=== PATIENT | male | born 1950 | race Caucasian/White ===

== ENCOUNTER 2022-06-26 11:13 | Inpatient (IN) | payer OTHER ==
[~2022-06-26] VITALS: Ht 165.1 cm; Wt 93.9 kg
[2022-06-26 11:15] VITALS: BP_SYST 128
[2022-06-26] MEDS ORDERED: dilTIAZem HCL IVP 5 MG/ML VIAL IVP ONE ×2 (11:30→11:45)
[2022-06-26] MEDS ORDERED: DILTIAZEM HCL 60 MG TABLET PO ONE (11:30)
[2022-06-26 11:40] LABS: BASOPHILS # (AUTO) 0.1 K/uL (0.0-0.2); BASOPHILS % (AUTO) 0.8 % (0.0-2.0); EOSINOPHILS # (AUTO) 0.2 K/uL (0.0-0.4); EOSINOPHILS % (AUTO) 1.8 % (0.0-4.0); HEMATOCRIT 40.4 % (36-54); HEMOGLOBIN 13.5 g/dL (14.0-18.0); LYMPHOCYTES # (AUTO) 1.6 K/uL (1.0-5.5); LYMPHOCYTES % (AUTO) 17.9 % (20.5-51.5); MEAN CORPUSCULAR HEMOGLOBIN 30 pg (27-31); MEAN CORPUSCULAR HGB CONC 33 % (32-36); MEAN CORPUSCULAR VOLUME 89 fL (79.0-98.0); MONOCYTES # (AUTO) 0.9 K/uL (0.0-1.0); MONOCYTES % (AUTO) 9.6 % (1.7-9.3); NEUTROPHILS # (AUTO) 6.4 K/uL (1.8-7.7); NEUTROPHILS % (AUTO) 69.9 % (40.0-70.0); PLATELET COUNT (AUTO) 241 K/uL (130-430); RED BLOOD CELL COUNT(AUTO) 4.53 MIL/uL (4.2-6.2); RED CELL DISTRIBUTION WIDTH 14.3 % (9.0-15.0); WHITE BLOOD COUNT (AUTO) 9.1 K/uL (4.8-10.8)
[2022-06-26 11:51] LABS: ANION GAP 10 (5-15); CALCIUM 8.9 mg/dL (8.4-11.0); CHLORIDE 106 mmol/L (98-107); CREATININE 1.14 mg/dL (0.55-1.30); GLUCOSE 167 mg/dL (70-99); UREA NITROGEN, BLOOD 26 mg/dL (8-21)
[2022-06-26] MEDS ORDERED: ROSU40TA23 PO (11:53)
[2022-06-26] MEDS ORDERED: FINA5TAB11 PO (11:53)
[2022-06-26] MEDS ORDERED: EMPA25TA PO (11:53)
[2022-06-26] MEDS ORDERED: METO-542 PO (11:53)
[2022-06-26] MEDS ORDERED: SITA1TBM7 PO (11:53)
[2022-06-26] MEDS ORDERED: LOSA25TA18 PO (11:53)
[2022-06-26] MEDS ORDERED: TAMS0.4C96 PO (11:53)
[2022-06-26] MEDS ORDERED: APIX5TAB PO (11:53)
[2022-06-26] MEDS ORDERED: INSU300I3 SUBCUT (11:53)
[2022-06-26 11:56] LABS: INR 1.2 (0.80-1.20); PROTHROMBIN TIME 12.3 SECS (9.5-12.5)
[2022-06-26 12:18] LABS: ALANINE AMINOTRANSFERASE 24 U/L (12-78); ALBUMIN 2.9 g/dL (3.4-4.8); ASPARTATE AMINOTRANSFERASE 14 U/L (10-37); TOTAL BILIRUBIN 0.9 mg/dL (0.0-1.0)
[2022-06-26] MEDS ORDERED: ACETAMINOPHEN 325 MG TABLET PO PRN ×2 (12:45→13:00)
[2022-06-26] MEDS ORDERED: FUROSEMIDE 20 MG/2 ML VIAL IVP ONE (12:45)
[2022-06-26] MEDS ORDERED: NACL 0.9% 1,000 ML IV ONE (13:15)
[2022-06-26] MEDS ORDERED: METOPROLOL TARTRATE 25 MG TABLET PO SCH (14:00)
[2022-06-26] MEDS ORDERED: DEXTROSE 50% JECT 50 ML DISP.SYRIN IVP PRN ×2 (14:15)
[2022-06-26] MEDS ORDERED: INSULIN LISPRO SLIDING SCALE 100 UNITS/ML, 3 ML VIAL (humaLOG) SUBCUT PRN (14:15)
[2022-06-26] MEDS ORDERED: D5W 1,000 ML IV PRN (14:15)
[2022-06-26] MEDS ORDERED: GLUCOSE (DEXTROSE) ORAL GEL -Adults PO PRN (14:15)
[2022-06-26] MEDS: DILTIAZEM HCL 60 MG TABLET PO SCH (18:04)
[2022-06-26] MEDS ORDERED: ZOLPIDEM TARTRATE 5 MG TABLET PO PRN (20:00)
[2022-06-26] MEDS: INSULIN GLARGINE 100 UNITS/ML, 10 ML VIAL SUBCUT SCH (22:12)
[2022-06-26] MEDS: FUROSEMIDE 20 MG/2 ML VIAL IVP SCH (22:14)
[2022-06-27 05:29] LABS: BASOPHILS # (AUTO) 0.1 K/uL (0.0-0.2); BASOPHILS % (AUTO) 0.7 % (0.0-2.0); EOSINOPHILS # (AUTO) 0.3 K/uL (0.0-0.4); EOSINOPHILS % (AUTO) 3.1 % (0.0-4.0); HEMATOCRIT 40.7 % (36-54); HEMOGLOBIN 13.3 g/dL (14.0-18.0); LYMPHOCYTES # (AUTO) 1.7 K/uL (1.0-5.5); LYMPHOCYTES % (AUTO) 17.7 % (20.5-51.5); MEAN CORPUSCULAR HEMOGLOBIN 30 pg (27-31); MEAN CORPUSCULAR HGB CONC 33 % (32-36); MEAN CORPUSCULAR VOLUME 90 fL (79.0-98.0); MONOCYTES # (AUTO) 0.9 K/uL (0.0-1.0); MONOCYTES % (AUTO) 9.2 % (1.7-9.3); NEUTROPHILS # (AUTO) 6.5 K/uL (1.8-7.7); NEUTROPHILS % (AUTO) 69.3 % (40.0-70.0); PLATELET COUNT (AUTO) 223 K/uL (130-430); RED BLOOD CELL COUNT(AUTO) 4.51 MIL/uL (4.2-6.2); RED CELL DISTRIBUTION WIDTH 14.8 % (9.0-15.0); WHITE BLOOD COUNT (AUTO) 9.4 K/uL (4.8-10.8)
[2022-06-27 05:48] LABS: ALANINE AMINOTRANSFERASE 25 U/L (12-78); ALBUMIN 2.7 g/dL (3.4-4.8); ANION GAP 11 (5-15); ASPARTATE AMINOTRANSFERASE 13 U/L (10-37); CALCIUM 8.5 mg/dL (8.4-11.0); CHLORIDE 107 mmol/L (98-107); CREATININE 1.02 mg/dL (0.55-1.30); GLUCOSE 112 mg/dL (70-99); PHOSPHORUS 4.3 mg/dL (2.7-4.5); TOTAL BILIRUBIN 0.9 mg/dL (0.0-1.0); UREA NITROGEN, BLOOD 25 mg/dL (8-21)
[2022-06-27] MEDS: DILTIAZEM HCL 60 MG TABLET PO SCH ×2 (06:00→11:33)
[2022-06-27] MEDS: APIXABAN 2.5 MG TABLET PO SCH ×3 (07:17→21:03)
[2022-06-27 08:13] VITALS: BP_SYST 99
[2022-06-27 08:23] VITALS: BP_SYST 99
[2022-06-27] MEDS ORDERED: LOSARTAN POTASSIUM 25 MG TABLET PO SCH (09:00)
[2022-06-27] MEDS ORDERED: ASPIRIN 81 MG TAB.CHEW PO SCH (09:00)
[2022-06-27] MEDS: FUROSEMIDE 20 MG/2 ML VIAL IVP SCH ×2 (11:28→21:02)
[2022-06-27] MEDS: TAMSULOSIN HCL 0.4 MG CAP PO SCH (11:29)
[2022-06-27] MEDS: FINASTERIDE 5 MG TABLET (PROSCAR) PO SCH (11:29)
[2022-06-27 11:33] VITALS: BP_SYST 107
[2022-06-27] MEDS ORDERED: dilTIAZem HCL IVP 5 MG/ML VIAL IVP PRN (11:45)
[2022-06-27] MEDS ORDERED: DIGOXIN 0.5 MG/2 ML AMP IVP ONE (12:00)
[2022-06-27] MEDS: DILTIAZEM HCL 30 MG TABLET PO SCH ×2 (12:00→17:35)
[2022-06-27] MEDS ORDERED: CARVEDILOL 6.25 MG TABLET (COREG) PO ONE (12:00)
[2022-06-27 12:16] LABS: THYROID STIMULATING HORMONE 1.55 uIu/mL (0.34-4.82)
[2022-06-27] MEDS ORDERED: METOPROLOL SUCCINATE 25 MG TAB.SR.24H (TOPROL XL) PO ONE (12:30)
[2022-06-27 12:33] LABS: FREE T4 (FREE THYROXINE) 1.1 ng/dl (0.8-1.5)
[2022-06-27] MEDS ORDERED: SPIRONOLACTONE 25 MG TABLET (ALDACTONE) PO ONE (13:30)
[2022-06-27 13:34] VITALS: BP_SYST 117
[2022-06-27 16:35] VITALS: BP_SYST 101
[2022-06-27] MEDS ORDERED: CARVEDILOL 6.25 MG TABLET (COREG) PO SCH (21:00)
[2022-06-27] MEDS: ATORVASTATIN 20 MG TABLET PO SCH (21:02)
[2022-06-27] MEDS: INSULIN GLARGINE 100 UNITS/ML, 10 ML VIAL SUBCUT SCH (21:07)
[2022-06-27 22:02] VITALS: BP_SYST 105
[2022-06-28] VITALS: BP_SYST 100
[2022-06-28 04:10] VITALS: BP_SYST 123
[2022-06-28 05:37] LABS: BASOPHILS # (AUTO) 0.1 K/uL (0.0-0.2); BASOPHILS % (AUTO) 0.9 % (0.0-2.0); EOSINOPHILS # (AUTO) 0.3 K/uL (0.0-0.4); EOSINOPHILS % (AUTO) 3.6 % (0.0-4.0); HEMATOCRIT 40.1 % (36-54); HEMOGLOBIN 13.3 g/dL (14.0-18.0); LYMPHOCYTES # (AUTO) 1.5 K/uL (1.0-5.5); LYMPHOCYTES % (AUTO) 18.7 % (20.5-51.5); MEAN CORPUSCULAR HEMOGLOBIN 30 pg (27-31); MEAN CORPUSCULAR HGB CONC 33 % (32-36); MEAN CORPUSCULAR VOLUME 89 fL (79.0-98.0); MONOCYTES # (AUTO) 0.8 K/uL (0.0-1.0); MONOCYTES % (AUTO) 10.1 % (1.7-9.3); NEUTROPHILS # (AUTO) 5.3 K/uL (1.8-7.7); NEUTROPHILS % (AUTO) 66.7 % (40.0-70.0); PLATELET COUNT (AUTO) 232 K/uL (130-430); RED BLOOD CELL COUNT(AUTO) 4.51 MIL/uL (4.2-6.2); RED CELL DISTRIBUTION WIDTH 14.2 % (9.0-15.0); WHITE BLOOD COUNT (AUTO) 7.9 K/uL (4.8-10.8)
[2022-06-28 06:02] LABS: ALANINE AMINOTRANSFERASE 25 U/L (12-78); ALBUMIN 2.7 g/dL (3.4-4.8); ANION GAP 11 (5-15); ASPARTATE AMINOTRANSFERASE 17 U/L (10-37); CALCIUM 8.8 mg/dL (8.4-11.0); CHLORIDE 107 mmol/L (98-107); GLUCOSE 155 mg/dL (70-99); PHOSPHORUS 3.8 mg/dL (2.7-4.5); TOTAL BILIRUBIN 0.9 mg/dL (0.0-1.0); UREA NITROGEN, BLOOD 22 mg/dL (8-21)
[2022-06-28] MEDS: DILTIAZEM HCL 30 MG TABLET PO SCH ×5 (06:29→23:59)
[2022-06-28 08:20] VITALS: BP_SYST 130
[2022-06-28] MEDS: SACUBITRIL/VALSARTAN 24 MG-26 MG 1 TABLET PO SCH ×2 (09:00→21:00)
[2022-06-28] MEDS: FUROSEMIDE 20 MG/2 ML VIAL IVP SCH ×2 (09:00→21:00)
[2022-06-28] MEDS: TAMSULOSIN HCL 0.4 MG CAP PO SCH (09:01)
[2022-06-28] MEDS: SPIRONOLACTONE 25 MG TABLET (ALDACTONE) PO SCH (09:01)
[2022-06-28] MEDS: DIGOXIN 0.125 MG TABLET PO SCH (09:01)
[2022-06-28] MEDS: METOPROLOL SUCCINATE 25 MG TAB.SR.24H (TOPROL XL) PO SCH (09:02)
[2022-06-28] MEDS: FINASTERIDE 5 MG TABLET (PROSCAR) PO SCH (09:03)
[2022-06-28] MEDS: APIXABAN 2.5 MG TABLET PO SCH ×2 (09:04→21:17)
[2022-06-28 16:00] VITALS: BP_SYST 107
[2022-06-28 20:07] VITALS: BP_SYST 100
[2022-06-28] MEDS: ATORVASTATIN 20 MG TABLET PO SCH (21:09)
[2022-06-28] MEDS: INSULIN GLARGINE 100 UNITS/ML, 10 ML VIAL SUBCUT SCH (21:17)
[2022-06-29 00:18] VITALS: BP_SYST 102
[2022-06-29 04:39] LABS: BASOPHILS # (AUTO) 0.1 K/uL (0.0-0.2); BASOPHILS % (AUTO) 0.8 % (0.0-2.0); EOSINOPHILS # (AUTO) 0.3 K/uL (0.0-0.4); HEMATOCRIT 42.5 % (36-54); HEMOGLOBIN 14.1 g/dL (14.0-18.0); LYMPHOCYTES % (AUTO) 24.1 % (20.5-51.5); MEAN CORPUSCULAR HEMOGLOBIN 30 pg (27-31); MEAN CORPUSCULAR HGB CONC 33 % (32-36); MEAN CORPUSCULAR VOLUME 89 fL (79.0-98.0); MONOCYTES # (AUTO) 0.9 K/uL (0.0-1.0); MONOCYTES % (AUTO) 11.6 % (1.7-9.3); NEUTROPHILS # (AUTO) 4.8 K/uL (1.8-7.7); NEUTROPHILS % (AUTO) 59.5 % (40.0-70.0); PLATELET COUNT (AUTO) 260 K/uL (130-430); RED BLOOD CELL COUNT(AUTO) 4.77 MIL/uL (4.2-6.2); RED CELL DISTRIBUTION WIDTH 14.5 % (9.0-15.0); WHITE BLOOD COUNT (AUTO) 8.1 K/uL (4.8-10.8)
[2022-06-29 04:56] LABS: ANION GAP 8 (5-15); CALCIUM 9.2 mg/dL (8.4-11.0); CHLORIDE 106 mmol/L (98-107); CREATININE 1.05 mg/dL (0.55-1.30); GLUCOSE 180 mg/dL (70-99); UREA NITROGEN, BLOOD 23 mg/dL (8-21)
[2022-06-29] MEDS: DILTIAZEM HCL 30 MG TABLET PO SCH ×2 (06:47→12:25)
[2022-06-29 07:45] VITALS: BP_SYST 102
[2022-06-29] MEDS: FUROSEMIDE 20 MG/2 ML VIAL IVP SCH (09:23)
[2022-06-29] MEDS: FINASTERIDE 5 MG TABLET (PROSCAR) PO SCH (09:33)
[2022-06-29] MEDS: DIGOXIN 0.125 MG TABLET PO SCH (09:33)
[2022-06-29] MEDS: TAMSULOSIN HCL 0.4 MG CAP PO SCH (09:33)
[2022-06-29] MEDS: SPIRONOLACTONE 25 MG TABLET (ALDACTONE) PO SCH (09:33)
[2022-06-29] MEDS: SACUBITRIL/VALSARTAN 24 MG-26 MG 1 TABLET PO SCH (09:34)
[2022-06-29] MEDS: APIXABAN 2.5 MG TABLET PO SCH (09:35)
[2022-06-29] MEDS: METOPROLOL SUCCINATE 25 MG TAB.SR.24H (TOPROL XL) PO SCH (10:00)
[2022-06-29 11:14] VITALS: BP_SYST 105
[2022-06-29] MEDS ORDERED: SPIR25TA PO (12:36)
[2022-06-29] MEDS ORDERED: DIGO125T PO (12:36)
[2022-06-29] MEDS ORDERED: CAR30 PO (12:36)
[2022-06-29] MEDS ORDERED: SACU1TAB PO (12:36)
[2022-06-29] MEDS ORDERED: METO-540 PO (12:36)
[2022-06-29] MEDS ORDERED: INSU100V9 SUBCUT (12:36)
[2022-06-29 15:29] VITALS: BP_SYST 96
[2022-06-29 16:27] VITALS: BP_SYST 127
== END 2022-06-29 17:05 | disposition home or self-care (01) | DRG 291 ==
LOC: SED 11:13 → STU 12:35
PROVIDERS: ADMIT Student in an Organized Health Care Education/Training Program; ATTEND Specialist
DX: I11.0 Hypertensive heart disease with heart failure (principal); I50.43 Acute on chronic combined systolic (congestive) and diastolic (congestive) heart failure; I47.1 Supraventricular tachycardia; I48.20 Chronic atrial fibrillation, unspecified; I42.0 Dilated cardiomyopathy; E78.5 Hyperlipidemia, unspecified; E11.9 Type 2 diabetes mellitus without complications; I50.9 Heart failure, unspecified; I34.0 Nonrheumatic mitral (valve) insufficiency; I27.21 Secondary pulmonary arterial hypertension; Z20.822 Contact with and (suspected) exposure to COVID-19; Z79.4 Long term (current) use of insulin; Z88.1 Allergy status to other antibiotic agents; Z79.899 Other long term (current) drug therapy; Z79.01 Long term (current) use of anticoagulants; Z86.73 Personal history of transient ischemic attack (TIA), and cerebral infarction without residual deficits
CPT/HCPCS: 36415; 71045; 80048; 80053; 82962; 83735; 83880; 84100; 84439; 84443; 84484; 85025; 85379; 85610-TC; 85730-TC; 93005; 93306; 93970; 96361; 96374; 97112-GP; 97116-GP; 97163-GP; 97530-GP; 99285; G0378; J1160; J1815; J1940; J3490